=== PATIENT | male | born 1955 | race Caucasian/White ===

== ENCOUNTER 2017-03-25 12:12 | Day surgery (SDC) | payer OTHER ==
[~2017-03-25] VITALS: Ht 180.3 cm; Wt 80.6 kg
[~2017-03-25 12:12] MED LIST: ALBU8.5H3 INH; AZIT250T94 PO
[2017-03-25 12:44] VITALS: Ht 180.3 cm; Wt 80.6 kg
[2017-03-25] MEDS ORDERED: NO MEDS (12:48)
[2017-03-25 14:37] VITALS: BP 121/81; PULSE 77; RESP 12
--- NOTE | 2017-03-25 16:10 | OPPN ---
Date/Time of Note Date/Time of Note aDATE: 03/25/17 TIME: 16:04 Proc Note GI Procedure Date 03/25/17 Indication: screening/surveillance, other (h/o colon CA) Pre-procedure Diagnosis Surveillance/colon CA Post-procedure Diagnosis Impression: 3 small polyps in the area of the rectum. 8 mm snared and retrieved 5 mm snare and retrieved 3 mm ablated Post right-sided colectomy with an end-to-side anastomosis.. Normal-appearing mucosa. Moderate-sized internal hemorrhoids. Plan: Review pathology Annual Hemoccult stool testing Review pathology Surveillance colonoscopy in 3 years . Procedure Performed: Other (Colonoscopy plus polyp ablation. Colonoscopy with snare polypectomy and retrieval) Surgeon MICHELLE GOLDSTEIN MD See signature line [employer] Professor none Anesthesia Type: MAC Anesthesiologist: YANN SANCHEZ MD Tourniquet Time none EBL none Transfusion required none Biopsy 1: None Polyp 1: 3 rectal polyps Grafts/Implants none Tubes/Drains none Complication(s) none Disposition: home Procedure Description After informed consent, with the patient/relatives understanding the procedure, its indications and potential risks and complications, including but not limited to: Allergic reaction, bleeding, perforation, infection, and after all pertinent questions were answered to the patient's satisfaction, the patient/ relatives signed the witnessed informed consent. Following this, premedication was administered slowly IV push under careful cardiovascular and respiratory monitoring with pulse OXIM[employer]RY, automatic blood pressure, and parliamentary counsel. Once the sedative effect was achieved, the patient was placed in the left lateral decubitus position, digital rectal examination was performed. The colonoscope was then introduced and advanced under visual control throughout all segments of the colon including: the rectum, sigmoid, descending colon, splenic flexure, transverse colon, hepatic flexure, ascending colon where an end-to-side anastomosis is identified. Careful examination of the mucosa of the lower gastrointestinal tract both on insertion as well as withdrawal of the instrument disclosed the following findings: PREPARATION QUALITY: [Adequate], RECTAL EXAM: The anorectal area was visualized examined and digital rectal examination performed with the following findings: No evidence of perirectal disease, no masses. COLONIC MUCOSA: The mucosa of all segments of the colon was carefully examined and showed the following findings: There are 3 small polyps in the area of the rectum measuring 8 mm, snared and retrieved. 5 mm snared and retrieved and 3 mm ablated. There is evidence of an end-to-side anastomosis with a healthy-appearing mucosa. Moderate size internal hemorrhoids are present. The examined mucosa appears within normal limits. There is no evidence of inflammatory changes, diverticular formation, polyps or other neoplasms, vascular malformation, or any other abnormality. The instrument was then withdrawn, the patient tolerated the procedure well and was transferred out of the Endoscopy Suite awake and in good condition to continue recovery under observation. Copies To: CC: MICHELLE GOLDSTEIN MD, MORDO MD Mar 25, 2017 16:10
[2017-03-25 16:44] VITALS: BP 116/76; RESP 17
== END 2017-03-25 18:34 | disposition home or self-care (01) ==
LOC: GIL 12:12
PROVIDERS: ATTEND Internal Medicine Gastroenterology
DX: Z12.11 Encounter for screening for malignant neoplasm of colon (principal); D12.8 Benign neoplasm of rectum; K64.8 Other hemorrhoids; Z85.038 Personal history of other malignant neoplasm of large intestine
CPT/HCPCS: 45385; 88305; Z7610